=== PATIENT | female | born 1950 | race Caucasian/White ===

== ENCOUNTER 2024-01-10 22:39 | Inpatient (IN) | payer MEDICARE ==
[~2024-01-10] VITALS: Ht 167.6 cm; Wt 62.6 kg
[2024-01-10] MEDS ORDERED: HYDROCODONE/APAP 5/325MG TABLET ONE (23:27)
[2024-01-10] MEDS: HYDROCODONE/APAP 5/325MG TABLET PO ONE (23:28)
[2024-01-11] MEDS ORDERED: MORPHINE SULFATE INJ 4 MG/ML DISP.SYRIN ONE ×2 (01:49→04:59)
[2024-01-11] MEDS ORDERED: ONDANSETRON HCL/PF 4 MG/2 ML VIAL ONE (01:49)
[2024-01-11] MEDS: MORPHINE SULFATE INJ 2 MG/ML DISP.SYRIN IV ONE ×2 (01:50→04:59)
[2024-01-11] MEDS: ONDANSETRON HCL/PF 4 MG/2 ML VIAL IV ONE (01:50)
[2024-01-11 02:02] LABS: BASOPHILS # (AUTO) 0.1 K/uL (0.0-0.2); BASOPHILS % (AUTO) 0.6 % (0.0-2.0); EOSINOPHILS # (AUTO) 0.1 K/uL (0.0-0.7); EOSINOPHILS % (AUTO) 0.5 % (0.0-6.0); HEMATOCRIT 40 % (33-45); HEMOGLOBIN 13.4 g/dL (11.5-14.8); LYMPHOCYTES # (AUTO) 1.7 K/uL (0.8-4.8); LYMPHOCYTES % (AUTO) 12.3 % (20.0-44.0); MEAN CORPUSCULAR HEMOGLOBIN 31 PG (26.0-33.0); MEAN CORPUSCULAR HGB CONC 33 g/dl (31.0-36.0); MEAN CORPUSCULAR VOLUME 92 fL (82-100); MONOCYTES # (AUTO) 0.8 K/uL (0.1-1.30); MONOCYTES % (AUTO) 5.6 % (2.0-12.0); NEUTROPHILS # (AUTO) 11.3 K/uL (1.8-8.9); PLATELET COUNT (AUTO) 313 K/uL (150-450); RED BLOOD CELL COUNT(AUTO) 4.38 MIL/uL (4.0-5.2); RED CELL DISTRIBUTION WIDTH 12.9 % (11.5-15.0); WHITE BLOOD COUNT (AUTO) 13.9 K/uL (4.3-11.0)
[2024-01-11 02:14] LABS: CALCIUM, SERUM 9.1 mg/dL (8.5-10.1); CARBON DIOXIDE 25 mmol/L (21-32); CHLORIDE 102 mmol/L (98-107); CREATININE 0.7 mg/dL (0.6-1.3); GLUCOSE 98 mg/dL (74-106); POTASSIUM 3.3 mmol/L (3.5-5.1); SODIUM SERUM 139 mmol/L (136-145); UREA NITROGEN, BLOOD 7 mg/dL (7-18)
[2024-01-11 02:15] LABS: INR 0.97 (0.91-1.10); PARTIAL THROMBOPLASTIN TIME 27.7 SEC (24.3-34.3); PROTHROMBIN TIME 10.3 SECS (9.2-11.1)
[2024-01-11 08:00] VITALS: BP 153/80; TEMP 98.3; O2SAT 100
[2024-01-11] MEDS ORDERED: ONDANSETRON HCL/PF 4 MG/2 ML VIAL IVP PRN (09:00)
[2024-01-11] MEDS ORDERED: MORPHINE SULFATE INJ 2 MG/ML DISP.SYRIN IV PRN (09:00)
[2024-01-11] MEDS ORDERED: ACETAMINOPHEN 325 MG TABLET PO PRN (09:00)
[2024-01-11] MEDS ORDERED: Z GUARD REMEDY 4 OZ OINT TP PRN (09:00)
[2024-01-11] MEDS: ENOXAPARIN SODIUM 40 MG/0.4 ML DISP.SYRIN SQ SCH (09:00)
[2024-01-11] MEDS: MORPHINE SULFATE INJ 2 MG/ML DISP.SYRIN IV PRN (09:09)
[2024-01-11] MEDS ORDERED: LOW DOSE NALTREXONE PO (10:13)
[2024-01-11] MEDS ORDERED: [UNRECOGNIZED DRUG - OTHER] PO (10:13)
[2024-01-11] MEDS: IV D5/ 0.9% NACL 1,000 ML IV PRN (10:15)
[2024-01-11] MEDS: POTASSIUM CHLORIDE 20 MEQ TAB.PRT.SR PO ONE (11:08)
[2024-01-11] MEDS: PANTOPRAZOLE 40 MG TABLET.DR PO SCH (11:08)
[2024-01-11] MEDS ORDERED: BUPIVACAINE 0.5 % PF 150 MG/30 ML VIAL ONE (12:17)
[2024-01-11] MEDS: MORPHINE SULFATE INJ 4 MG/ML DISP.SYRIN IV PRN (12:55)
[2024-01-11] MEDS ORDERED: MIDAZOLAM HCL 2 MG/2ML VIAL ONE (15:01)
[2024-01-11] MEDS ORDERED: FENTANYL PF 100MCG/2ML AMPUL ONE ×2 (15:01→16:52)
[2024-01-11] MEDS ORDERED: KETAMINE HCL (500MG/10ML) 50 MG/ML VIAL ONE (15:01)
[2024-01-11 17:52] VITALS: BP 103/57; TEMP 97.8; O2SAT 94
[2024-01-11 20:00] VITALS: BP 101/66; TEMP 98.1; O2SAT 100
[2024-01-11] MEDS: CEFAZOLIN 2 GM in IV D5W 100 ML IV SCH (23:00)
[2024-01-12 07:25] LABS: BASOPHILS # (AUTO) 0.1 K/uL (0.0-0.2); BASOPHILS % (AUTO) 0.4 % (0.0-2.0); HEMATOCRIT 31 % (33-45); HEMOGLOBIN 10.3 g/dL (11.5-14.8); LYMPHOCYTES % (AUTO) 13.1 % (20.0-44.0); MEAN CORPUSCULAR HEMOGLOBIN 31 PG (26.0-33.0); MEAN CORPUSCULAR HGB CONC 33 g/dl (31.0-36.0); MEAN CORPUSCULAR VOLUME 92 fL (82-100); MONOCYTES # (AUTO) 1.2 K/uL (0.1-1.30); MONOCYTES % (AUTO) 7.9 % (2.0-12.0); NEUTROPHILS % (AUTO) 78.6 % (43.0-81.0); PLATELET COUNT (AUTO) 263 K/uL (150-450); RED BLOOD CELL COUNT(AUTO) 3.36 MIL/uL (4.0-5.2); RED CELL DISTRIBUTION WIDTH 13.2 % (11.5-15.0); WHITE BLOOD COUNT (AUTO) 15.2 K/uL (4.3-11.0)
[2024-01-12 07:45] LABS: ALANINE AMINOTRANSFERASE 17 U/L (12-78); ALBUMIN 3.1 g/dL (3.4-5.0); ALKALINE PHOSPHATASE 57 U/L (46-116); ASPARTATE AMINOTRANSFERASE 19 U/L (15-37); BILIRUBIN,TOTAL 0.6 mg/dL (0.2-1.0); CALCIUM, SERUM 7.9 mg/dL (8.5-10.1); CARBON DIOXIDE 28 mmol/L (21-32); CHLORIDE 106 mmol/L (98-107); GLUCOSE 118 mg/dL (74-106); MAGNESIUM 1.9 mg/dL (1.8-2.4); PHOSPHORUS 3.3 mg/dL (2.5-4.9); POTASSIUM 4.7 mmol/L (3.5-5.1); SODIUM SERUM 140 mmol/L (136-145); TOTAL PROTEIN, SERUM 6.5 g/dL (6.4-8.2); UREA NITROGEN, BLOOD 14 mg/dL (7-18)
[2024-01-12 08:00] VITALS: BP 110/66; TEMP 98.8; O2SAT 99
[2024-01-12] MEDS: ASCORBIC ACID 500 MG TABLET PO SCH (14:42)
[2024-01-12 16:00] VITALS: BP 99/80; TEMP 98.6; O2SAT 99
[2024-01-12] MEDS: ENOXAPARIN SODIUM 40 MG/0.4 ML DISP.SYRIN SQ SCH (17:00)
[2024-01-12 20:00] VITALS: BP 114/50; TEMP 99.3; O2SAT 96
[2024-01-13 06:00] VITALS: BP 139/72; O2SAT 97
[2024-01-13 07:38] LABS: BASOPHILS # (AUTO) 0.1 K/uL (0.0-0.2); BASOPHILS % (AUTO) 0.8 % (0.0-2.0); EOSINOPHILS # (AUTO) 0.1 K/uL (0.0-0.7); HEMATOCRIT 29 % (33-45); HEMOGLOBIN 9.7 g/dL (11.5-14.8); LYMPHOCYTES % (AUTO) 24.4 % (20.0-44.0); MEAN CORPUSCULAR HEMOGLOBIN 32 PG (26.0-33.0); MEAN CORPUSCULAR HGB CONC 34 g/dl (31.0-36.0); MEAN CORPUSCULAR VOLUME 93 fL (82-100); MONOCYTES # (AUTO) 1.2 K/uL (0.1-1.30); MONOCYTES % (AUTO) 9.5 % (2.0-12.0); NEUTROPHILS % (AUTO) 64.3 % (43.0-81.0); PLATELET COUNT (AUTO) 239 K/uL (150-450); RED BLOOD CELL COUNT(AUTO) 3.09 MIL/uL (4.0-5.2); RED CELL DISTRIBUTION WIDTH 13.6 % (11.5-15.0); WHITE BLOOD COUNT (AUTO) 12.5 K/uL (4.3-11.0)
[2024-01-13 08:00] VITALS: BP 112/59; TEMP 98.4; O2SAT 97
[2024-01-13 08:04] LABS: CALCIUM, SERUM 8.4 mg/dL (8.5-10.1); CREATININE 0.8 mg/dL (0.6-1.3); POTASSIUM 4.3 mmol/L (3.5-5.1)
[2024-01-13] MEDS: cetrizine 10 MG TABLET PO PRN (08:12)
[2024-01-13 11:07] LABS: MAGNESIUM 2.1 mg/dL (1.8-2.4)
[2024-01-13 16:00] VITALS: BP 132/60; TEMP 99; O2SAT 96
[2024-01-13 20:00] VITALS: BP 121/64; TEMP 97.5; O2SAT 100
[2024-01-14 08:00] VITALS: BP 152/75; TEMP 97.9; O2SAT 98
[2024-01-14] MEDS ORDERED: ENOX40DI SQ (10:04)
[2024-01-14] MEDS ORDERED: HYDR-4303 PO (10:04)
== END 2024-01-14 14:10 | DRG 481 ==
LOC: ER 22:47 → TRANSITION 01-11 05:37 → MED 01-11 07:40
PROVIDERS: ADMIT Internal Medicine; ATTEND Internal Medicine
PROC: 0QS606Z Reposition Right Upper Femur with Intramedullary Internal Fixation Device, Open Approach (ICD-10-PCS; principal; 2024-01-11)
DX: S72.141A Displaced intertrochanteric fracture of right femur, initial encounter for closed fracture (principal); R65.10 Systemic inflammatory response syndrome (SIRS) of non-infectious origin without acute organ dysfunction; W01.0XXA Fall on same level from slipping, tripping and stumbling without subsequent striking against object, initial encounter; E87.6 Hypokalemia; Z20.822 Contact with and (suspected) exposure to COVID-19; D72.829 Elevated white blood cell count, unspecified; Y93.89 Activity, other specified; Y92.481 Parking lot as the place of occurrence of the external cause
CPT/HCPCS: 36415; 71045-TC; 73502; 80048-TC; 80053-TC; 83735-TC; 84100-TC; 85025-TC; 85730-TC; 86850-TC; 93307-TC; 97110-TC; 97116-TC; 97530-TC; A4223; A6209; C1713; G0378; J0690; J1100; J1650; J2250; J2270; J2405; J2704; J3010; J3490; J7030; J7042; J7060

== ENCOUNTER 2024-03-05 12:12 | Inpatient (IN) | payer MEDICARE ==
[~2024-03-05] VITALS: Ht 167.6 cm; Wt 64.9 kg
[~2024-03-05 12:12] MED LIST: ENOX40DI SQ; HYDR-4303 PO; LOW DOSE NALTREXONE PO; [UNRECOGNIZED DRUG - OTHER] PO
[2024-03-05] MEDS: ACETAMINOPHEN ES 500 MG TABLET PO ONE (14:30)
[2024-03-05] MEDS ORDERED: ACETAMINOPHEN ES 500 MG TABLET ONE (14:39)
[2024-03-05 17:10] LABS: BASOPHILS % (AUTO) 0.6 % (0.0-2.0); EOSINOPHILS # (AUTO) 0.1 K/uL (0.0-0.7); EOSINOPHILS % (AUTO) 0.7 % (0.0-6.0); HEMATOCRIT 32 % (33-45); HEMOGLOBIN 10.9 g/dL (11.5-14.8); LYMPHOCYTES # (AUTO) 1.9 K/uL (0.8-4.8); LYMPHOCYTES % (AUTO) 26.7 % (20.0-44.0); MEAN CORPUSCULAR HEMOGLOBIN 31 PG (26.0-33.0); MEAN CORPUSCULAR HGB CONC 34 g/dl (31.0-36.0); MEAN CORPUSCULAR VOLUME 91 fL (82-100); MONOCYTES # (AUTO) 0.9 K/uL (0.1-1.30); MONOCYTES % (AUTO) 13.5 % (2.0-12.0); NEUTROPHILS # (AUTO) 4.1 K/uL (1.8-8.9); NEUTROPHILS % (AUTO) 58.5 % (43.0-81.0); PLATELET COUNT (AUTO) 275 K/uL (150-450); RED BLOOD CELL COUNT(AUTO) 3.48 MIL/uL (4.0-5.2); RED CELL DISTRIBUTION WIDTH 12.3 % (11.5-15.0)
[2024-03-05 17:17] LABS: CALCIUM, SERUM 10.7 mg/dL (8.5-10.1); CARBON DIOXIDE 29 mmol/L (21-32); CHLORIDE 106 mmol/L (98-107); CREATININE 0.4 mg/dL (0.6-1.3); GLUCOSE 93 mg/dL (74-106); POTASSIUM 3.7 mmol/L (3.5-5.1); SODIUM SERUM 145 mmol/L (136-145); UREA NITROGEN, BLOOD 16 mg/dL (7-18)
[2024-03-05] MEDS ORDERED: HYDROCODONE/APAP 5/325MG TABLET PO PRN (18:30)
[2024-03-05] MEDS ORDERED: MAGNESIUM HYDROXIDE 30 ML UDC PO PRN (18:30)
[2024-03-05] MEDS ORDERED: MAG HYDROX/AL HYDROX/SIMETH 30 ML UDC PO PRN (18:30)
[2024-03-05] MEDS ORDERED: ONDANSETRON HCL/PF 4 MG/2 ML VIAL IVP PRN (18:30)
[2024-03-05] MEDS ORDERED: Z GUARD REMEDY 4 OZ OINT TP PRN (18:30)
[2024-03-05 18:38] VITALS: BP 137/61; TEMP 97.6; O2SAT 97
[2024-03-05] MEDS: ENOXAPARIN SODIUM 40 MG/0.4 ML DISP.SYRIN SQ SCH (19:25)
[2024-03-05] MEDS: IV NS 0.9% 1,000 ML IV PRN (19:36)
[2024-03-05 20:00] VITALS: BP 133/63; TEMP 98.2; O2SAT 99
[2024-03-05] MEDS: ACETAMINOPHEN 325 MG TABLET PO PRN (20:34)
[2024-03-05] MEDS: ZOLPIDEM TARTRATE 5 MG TABLET PO PRN (22:05)
[2024-03-06] VITALS: BP 130/61; TEMP 98.3; O2SAT 99
[2024-03-06 04:00] VITALS: BP 139/63; TEMP 98.2; O2SAT 96
[2024-03-06 06:59] LABS: BASOPHILS % (AUTO) 0.9 % (0.0-2.0); EOSINOPHILS # (AUTO) 0.1 K/uL (0.0-0.7); EOSINOPHILS % (AUTO) 1.9 % (0.0-6.0); HEMATOCRIT 32 % (33-45); HEMOGLOBIN 10.9 g/dL (11.5-14.8); LYMPHOCYTES # (AUTO) 1.8 K/uL (0.8-4.8); LYMPHOCYTES % (AUTO) 33.7 % (20.0-44.0); MEAN CORPUSCULAR HEMOGLOBIN 31 PG (26.0-33.0); MEAN CORPUSCULAR HGB CONC 34 g/dl (31.0-36.0); MEAN CORPUSCULAR VOLUME 89 fL (82-100); MONOCYTES # (AUTO) 0.8 K/uL (0.1-1.30); MONOCYTES % (AUTO) 14.6 % (2.0-12.0); NEUTROPHILS # (AUTO) 2.6 K/uL (1.8-8.9); NEUTROPHILS % (AUTO) 48.9 % (43.0-81.0); PLATELET COUNT (AUTO) 306 K/uL (150-450); RED BLOOD CELL COUNT(AUTO) 3.57 MIL/uL (4.0-5.2); RED CELL DISTRIBUTION WIDTH 12.1 % (11.5-15.0); WHITE BLOOD COUNT (AUTO) 5.4 K/uL (4.3-11.0)
[2024-03-06 07:11] LABS: CALCIUM, SERUM 10.8 mg/dL (8.5-10.1); CARBON DIOXIDE 28 mmol/L (21-32); CHLORIDE 107 mmol/L (98-107); CREATININE 0.5 mg/dL (0.6-1.3); GLUCOSE 102 mg/dL (74-106); MAGNESIUM 1.9 mg/dL (1.8-2.4); PHOSPHORUS 4.4 mg/dL (2.5-4.9); POTASSIUM 3.6 mmol/L (3.5-5.1); SODIUM SERUM 145 mmol/L (136-145); UREA NITROGEN, BLOOD 15 mg/dL (7-18)
[2024-03-06 07:25] LABS: CHOLESTEROL 112 mg/dL (<200); HDL CHOLESTEROL 33 mg/dL (40-60); LDL 65 mg/dL (0-99); TRIGLYCERIDES 75 mg/dL (30-150)
[2024-03-06] MEDS: PANTOPRAZOLE 40 MG TABLET.DR PO SCH (07:30)
[2024-03-06 07:40] LABS: IRON, SERUM 51 ug/dl (50-175); TOTAL IRON BINDING CAPACITY 235 ug/dl (250-450)
[2024-03-06 08:00] VITALS: BP 145/81; TEMP 98.2; O2SAT 100
[2024-03-06 12:00] VITALS: TEMP 98
[2024-03-06] MEDS: DICLOFENAC TOPICAL 100 GM TUBE TP PRN (14:17)
[2024-03-06 16:00] VITALS: BP 156/90; TEMP 98.1; O2SAT 100
[2024-03-06 20:00] VITALS: BP 126/82; TEMP 98.4; O2SAT 100
[2024-03-07] VITALS: BP 126/82; TEMP 98.4; O2SAT 100
[2024-03-07 04:00] VITALS: BP 159/85; TEMP 98.1; O2SAT 95
[2024-03-07 08:00] VITALS: BP 152/87; TEMP 97.7; O2SAT 98
[2024-03-07] MEDS: ACETAMINOPHEN 325 MG TABLET PO PRN (08:21)
[2024-03-07 09:30] LABS: BASOPHILS # (AUTO) 0.1 K/uL (0.0-0.2); BASOPHILS % (AUTO) 0.7 % (0.0-2.0); EOSINOPHILS % (AUTO) 0.5 % (0.0-6.0); HEMATOCRIT 35 % (33-45); HEMOGLOBIN 11.6 g/dL (11.5-14.8); LYMPHOCYTES # (AUTO) 1.9 K/uL (0.8-4.8); LYMPHOCYTES % (AUTO) 21.5 % (20.0-44.0); MEAN CORPUSCULAR HEMOGLOBIN 30 PG (26.0-33.0); MEAN CORPUSCULAR HGB CONC 34 g/dl (31.0-36.0); MEAN CORPUSCULAR VOLUME 91 fL (82-100); MONOCYTES # (AUTO) 0.7 K/uL (0.1-1.30); MONOCYTES % (AUTO) 8.4 % (2.0-12.0); NEUTROPHILS % (AUTO) 68.9 % (43.0-81.0); PLATELET COUNT (AUTO) 346 K/uL (150-450); RED BLOOD CELL COUNT(AUTO) 3.83 MIL/uL (4.0-5.2); RED CELL DISTRIBUTION WIDTH 12.3 % (11.5-15.0); WHITE BLOOD COUNT (AUTO) 8.7 K/uL (4.3-11.0)
[2024-03-07 09:58] LABS: ALANINE AMINOTRANSFERASE 48 U/L (12-78); ALBUMIN 3.2 g/dL (3.4-5.0); ALKALINE PHOSPHATASE 129 U/L (46-116); ASPARTATE AMINOTRANSFERASE 22 U/L (15-37); BILIRUBIN,TOTAL 0.4 mg/dL (0.2-1.0); CALCIUM, SERUM 10.3 mg/dL (8.5-10.1); CARBON DIOXIDE 25 mmol/L (21-32); CHLORIDE 105 mmol/L (98-107); CREATININE 0.4 mg/dL (0.6-1.3); GLUCOSE 118 mg/dL (74-106); PHOSPHORUS 4.2 mg/dL (2.5-4.9); POTASSIUM 3.6 mmol/L (3.5-5.1); SODIUM SERUM 142 mmol/L (136-145); UREA NITROGEN, BLOOD 9 mg/dL (7-18)
[2024-03-07 10:31] LABS: MAGNESIUM 1.7 mg/dL (1.8-2.4)
[2024-03-07 11:09] LABS: VIT D, 25-HYDROXY 145.2 ng/mL (30.0-100.0)
[2024-03-07 12:00] VITALS: BP 145/78; TEMP 97.8; O2SAT 97
[2024-03-07 14:10] LABS: CALCITRIOL VIT D,1, 25 DIHYDRO 59.8 pg/mL (24.8-81.5)
[2024-03-07 16:00] VITALS: BP 150/83; TEMP 98.4; O2SAT 100
[2024-03-07 20:00] VITALS: BP 145/78; TEMP 97.9; O2SAT 100
[2024-03-08 04:00] VITALS: BP 142/74; TEMP 98.1; O2SAT 99
[2024-03-08 08:00] VITALS: BP 150/74; TEMP 98.6; O2SAT 95
== END 2024-03-08 16:04 | DRG 914 ==
LOC: ER 12:35 → MEDSG1 16:51 → TELE1 18:34 → MEDSG1 03-06 10:41
DX: S09.90XA Unspecified injury of head, initial encounter (principal); F03.93 Unspecified dementia, unspecified severity, with mood disturbance; W01.0XXA Fall on same level from slipping, tripping and stumbling without subsequent striking against object, initial encounter; Z90.49 Acquired absence of other specified parts of digestive tract; Y92.002 Bathroom of unspecified non-institutional (private) residence as the place of occurrence of the external cause; D64.9 Anemia, unspecified; E03.9 Hypothyroidism, unspecified; E83.52 Hypercalcemia; F39 Unspecified mood [affective] disorder; R51.9 Headache, unspecified; S00.83XA Contusion of other part of head, initial encounter; Y93.9 Activity, unspecified; Y92.009 Unspecified place in unspecified non-institutional (private) residence as the place of occurrence of the external cause; M79.661 Pain in right lower leg; M50.31 Other cervical disc degeneration, high cervical region; M48.02 Spinal stenosis, cervical region; M17.0 Bilateral primary osteoarthritis of knee; R40.2362 Coma scale, best motor response, obeys commands, at arrival to emergency department; R40.2142 Coma scale, eyes open, spontaneous, at arrival to emergency department; R40.2252 Coma scale, best verbal response, oriented, at arrival to emergency department
CPT/HCPCS: 36415; 70450-TC; 72125-TC; 73564-TC; 80048-TC; 80053-TC; 80061-TC; 82306; 82652; 83540-TC; 83735-TC; 83970; 84100-TC; 84443-TC; 85025-TC; 97110-TC; 97112-TC; 97116-TC; 97530-TC; 97535-TC; G0378; J1650

== ENCOUNTER 2024-09-23 14:06 | Emergency (ER) | payer MEDICARE, OTHER ==
[~2024-09-23] VITALS: Ht 167.6 cm; Wt 61.2 kg
[~2024-09-23 14:06] MED LIST changes: -ENOX40DI SQ; -HYDR-4303 PO
[2024-09-23 16:13] LABS: BASOPHILS # (AUTO) 0.1 K/uL (0.0-0.2); BASOPHILS % (AUTO) 1.1 % (0.0-2.0); EOSINOPHILS # (AUTO) 0.1 K/uL (0.0-0.7); EOSINOPHILS % (AUTO) 0.6 % (0.0-6.0); HEMATOCRIT 43 % (33-45); HEMOGLOBIN 14.6 g/dL (11.5-14.8); LYMPHOCYTES # (AUTO) 1.6 K/uL (0.8-4.8); LYMPHOCYTES % (AUTO) 18.3 % (20.0-44.0); MEAN CORPUSCULAR HEMOGLOBIN 33 PG (26.0-33.0); MEAN CORPUSCULAR HGB CONC 34 g/dl (31.0-36.0); MEAN CORPUSCULAR VOLUME 96 fL (82-100); MONOCYTES # (AUTO) 0.7 K/uL (0.1-1.30); MONOCYTES % (AUTO) 8.3 % (2.0-12.0); NEUTROPHILS # (AUTO) 6.5 K/uL (1.8-8.9); NEUTROPHILS % (AUTO) 71.7 % (43.0-81.0); PLATELET COUNT (AUTO) 304 K/uL (150-450); RED BLOOD CELL COUNT(AUTO) 4.43 MIL/uL (4.0-5.2); RED CELL DISTRIBUTION WIDTH 13.1 % (11.5-15.0)
[2024-09-23 16:24] LABS: CALCIUM, SERUM 10.1 mg/dL (8.5-10.1); CARBON DIOXIDE 28 mmol/L (21-32); CHLORIDE 95 mmol/L (98-107); CREATININE 0.8 mg/dL (0.6-1.3); GLUCOSE 114 mg/dL (74-106); POTASSIUM 4.2 mmol/L (3.5-5.1); SODIUM SERUM 134 mmol/L (136-145); UREA NITROGEN, BLOOD 11 mg/dL (7-18)
[2024-09-23 16:42] LABS: ALANINE AMINOTRANSFERASE 33 U/L (12-78); ALBUMIN 4.8 g/dL (3.4-5.0); ALKALINE PHOSPHATASE 140 U/L (46-116); ASPARTATE AMINOTRANSFERASE 36 U/L (15-37); BILIRUBIN,TOTAL 0.8 mg/dL (0.2-1.0); LIPASE 105 U/L (16-77); TOTAL PROTEIN, SERUM 8.7 g/dL (6.4-8.2)
[2024-09-23] MEDS ORDERED: IOHEXOL-300 100 ML VIAL IV ONE (17:51)
[2024-09-23] MEDS ORDERED: IV NS 0.9% 250 ML IV ONE (17:51)
[2024-09-23 19:46] VITALS: TEMP 98.5
[2024-09-23] MEDS ORDERED: MORPHINE SULFATE INJ 2 MG/ML DISP.SYRIN ONE ×3 (20:00→23:35)
[2024-09-23] MEDS: IV NS 0.9% 500 ML IV ONE (20:08)
[2024-09-23] MEDS: MORPHINE SULFATE INJ 2 MG/ML DISP.SYRIN IV ONE ×3 (20:08→23:37)
[2024-09-24 00:15] VITALS: BP 173/78; O2SAT 98
== END 2024-09-24 00:36 | disposition short-term general hospital (02) ==
LOC: ER 14:13
DX: S22.20XA Unspecified fracture of sternum, initial encounter for closed fracture (principal); V49.49XA Driver injured in collision with other motor vehicles in traffic accident, initial encounter; W22.19XA Striking against or struck by other automobile airbag, initial encounter; Y93.89 Activity, other specified; Y92.413 State road as the place of occurrence of the external cause; Y99.8 Other external cause status; I51.7 Cardiomegaly; Z90.49 Acquired absence of other specified parts of digestive tract; Z87.39 Personal history of other diseases of the musculoskeletal system and connective tissue; Z60.2 Problems related to living alone
CPT/HCPCS: 99291; 96374; 71260; 71045; 93005; 85025; 83690; 36415; 80053; 84484; 96376; J7050; J7040; J2270 ×3; Q9967